=== PATIENT | female | born 1970 | race Caucasian/White ===

== ENCOUNTER → 2016-12-03 | Day surgery (SDC) | payer OTHER ==
[~2016-12-03] MED LIST: BUPIVACAINE HCL PF 0.5% 10 ML VIAL ONE; FERR325T PO; HYDR-2768 PO; ISOSULFAN BLUE 50 MG/5 ML VIAL SQ ONE; LACTATED RINGER'S 1000 ML INJ 1,000 ML ONE; LISI-360 PO; MIDAZOLAM HCL 2 MG/2 ML VIAL ONE; ONDANSETRON HCL 4 MG/2 ML VIAL IV PUSH ONE; PROPOFOL 200 MG/20 ML AMP IV ONE; SODIUM CHLORIDE 0.9% INJ 10 ML ONE; Z.0.BCPILL PO; ceFAZolin INJ 1,000 MG VIAL ONE
--- NOTE | 2016-12-03 13:16 | TN ---
cc: CATHERINE BOATENG DATE OF SURGERY: 12/03/2016 PREOPERATIVE DIAGNOSIS Ductal carcinoma in situ of the left breast. POSTOPERATIVE DIAGNOSIS Ductal carcinoma in situ of the left breast. PROCEDURE PERFORMED Left breast needle-localized lumpectomy and left axillary sentinel lymph node biopsy. SURGEON Catherine Boateng ANESTHESIA General via LMA device. INDICATION The patient is a 46-year-old female with a newly diagnosed focal area of ductal carcinoma in situ in the lower inner aspect of the left breast. She now presents for definitive surgical therapy. FINDINGS At the time of surgery one sentinel lymph node was identified because it was palpable and slightly enlarged. There was no radioactive uptake or blue dye uptake in the axilla. Specimen mammogram did demonstrate an intact wire and the biopsy clip and calcifications were within the specimen. PROCEDURE After informed consent was obtained and site verification was performed, the patient was brought to the radiology suite where she underwent peritumoral radionuclide injection as well as needle localization of her prior biopsy site which was located at 6 o'clock 2 cm from the nipple. She was then brought to the major operating room where she underwent general anesthesia via an LMA device. She was given a single dose of IV Ancef and sequential compression hose were placed. The left breast and arm were prepped and draped in sterile fashion. 3 cc of half-strength Lymphazurin was injected in the subareolar left breast and a five-minute massage was performed. An incision was created at the inferior aspect of the left axillary hairline after anesthetizing with 0.5% Marcaine plain. Electrocautery dissection was then used to divide the clavipectoral fascia and the level I axilla was entered. There was one palpable slightly enlarged mid level I lymph node but otherwise no radioactive uptake or blue dye uptake. The single node was circumferentially dissected free from surrounding structures using the Harmonic scalpel and was sent as a sentinel node because it was slightly suspicious. Some surrounding level I axillary tissue was dissected free from surrounding structures using the Harmonic scalpel and this was sent as a permanent specimen. Good hemostasis was noted and it should be noted that the axillary vein and thoracodorsal neurovascular bundle were identified and remained intact throughout the dissection. The wound was then closed using interrupted 3-0 Vicryl and 4-0 Monocryl subcuticular suture. Attention was then turned to the left breast where the lesion was identified at 6 o'clock 2 cm from the nipple. A radial incision was anesthetized and incised sharply and both sharp and electrocautery dissection were then performed until the wire entry point through the skin was identified and secured with a hemostat. The wire was cut off at the skin with pin cutters and a 2-0 silk transfixion suture was placed at the wire entry point into the breast tissue. Both sharp and electrocautery dissection was then performed circumferentially around the wire and the specimen was oriented with two sutures anteriorly, one short suture superiorly, and one long suture laterally. Inspection of the specimen did demonstrate that the lower lateral and posterior margins appeared close. The lumpectomy specimen was sent to mammography with the findings as noted and was then sent for permanent pathologic evaluation. The lateral and posterior margins were sharply re-excised with stitches on the new margin and they were sent separately as permanent specimens. Hemostasis was easily obtained with electrocautery and the breast wound was closed using interrupted 3-0 Vicryl subcutaneous sutures and a 4-0 Monocryl subcuticular suture. Steri-Strips and sterile dressings were applied. The patient tolerated the procedure well with an estimated blood loss of 50 cc and she was extubated in the operating room and brought to the recovery room in good condition. All sponge and needle counts were correct at the conclusion of the case. MD ARPIT Ayala/CHIOMA /12:18 PM /1:10 PM
== END | disposition home or self-care (01) ==
LOC: ESDC 07:08
PROVIDERS: ATTEND Surgery
DX: D05.12 Intraductal carcinoma in situ of left breast (principal)
CPT/HCPCS: 00400; 01610; 19125; 38525; 38792; 88307; J0690; J2250; J2405; J3010; J7120; Q9968; 88305

== ENCOUNTER → 2016-12-17 | Day surgery (SDC) | payer OTHER ==
[~2016-12-17] MED LIST changes: +APREPITANT 40 MG CAP ONE; -BUPIVACAINE HCL PF 0.5% 10 ML VIAL ONE; +BUPIVACAINE HCL PF 0.5% 30 ML VIAL ONE; +BUPIVACAINE/EPINEPHRINE 0.5% PF 30 ML VIAL ONE; -ISOSULFAN BLUE 50 MG/5 ML VIAL SQ ONE; +KETOROLAC TROMETHAMINE 30 MG/ML (IVP) VIAL ONE; -SODIUM CHLORIDE 0.9% INJ 10 ML ONE; +ceFAZolin 2 GM PREMIX 50 ML ONE; -ceFAZolin INJ 1,000 MG VIAL ONE
--- NOTE | 2016-12-17 10:56 | TN ---
cc: CATHERINE BOATENG M.D. DATE OF SURGERY: 12/17/2016 PREOPERATIVE DIAGNOSIS: Left breast ductal carcinoma in situ with positive inferior lumpectomy margin. POSTOPERATIVE DIAGNOSIS: Left breast ductal carcinoma, in situ with positive inferior lumpectomy margin. PROCEDURE PREFORMED: Reexcision of left breast, inferior margin. SURGEON: Catherine Boateng MD. ANESTHESIA: General via laryngeal mask anesthesia device. INDICATIONS FOR PROCEDURE: The patient is a 46 year old female with recently diagnosed ductal carcinoma in-situ of the left breast. She had a needle localized lumpectomy and sentinel lymph node biopsy but had a positive inferior margin. She now presents for reexcision of the margin. FINDINGS AT TIME OF SURGERY: The lumpectomy cavity was easily identified with a moderate amount of noninfected seroma fluid. There was no gross evidence of residual disease. PROCEDURE PREFORMED: After informed consent was obtained and site verification was performed, the patient was brought to the operating room where she underwent general anesthesia via laryngeal mask anesthesia device. She was given a single dose of IV Ancef and subsequent compression hose were placed. The incision was anesthetized with half percent Marcaine plain. The incision was sharply reopened and the seroma cavity was immediately identified and evacuated. The inferior margin was identified and sharply demarcated and excised sharply with a stitch on the new margin. This was done in three segments which were all sent together and hemostasis was then obtained using electrocautery. The specimen was sent for permanent pathologic evaluation and the wound was closed using interrupted 3-0 Vicryl subcutaneous sutures and a 4-0 Monocryl subcuticular suture. Steri-Strips and a sterile dressing were applied. The patient tolerated the procedure well with minimal blood loss and she was extubated in the operating room and brought to the Recovery Room in good position. All sponge and needle counts were correct at the conclusion of the case. MD ARPIT Ayala/joyce /10:16 AM /10:20 AM [facility]OSPITALStephy
== END | disposition home or self-care (01) ==
LOC: ESDC 07:36
PROVIDERS: ATTEND Surgery
DX: D05.12 Intraductal carcinoma in situ of left breast (principal)
CPT/HCPCS: 00400; 19301; 88307; J0690; J1885; J2250; J2405; J3010; J7120; J8501